=== PATIENT | female | born 1975 | race Caucasian/White ===

== ENCOUNTER 2023-04-07 19:02 | Emergency (ER) | payer OTHER ==
[~2023-04-07] VITALS: Ht 162.6 cm; Wt 72.6 kg
[2023-04-07 19:28] VITALS: BP_SYST 129; PULSE 89; RESP 18; TEMP 97.4; O2SAT 100
[2023-04-07] MEDS ORDERED: MORPHINE 4 MG INJ. 4 MG/ML VIAL IVP ONE ×2 (21:00→22:45)
[2023-04-07] MEDS ORDERED: ONDANSETRON HCL 4 MG/2 ML VIAL IVP ONE (21:00)
[2023-04-07] MEDS ORDERED: DIPHENHYDRAMINE INJ 50 MG/ML VIAL IVP ONE (21:00)
[2023-04-07] MEDS ORDERED: NACL 0.9% 1,000 ML IV ONE (21:00)
[2023-04-07] MEDS ORDERED: KETOROLAC TROMETHAMINE 30 MG VIAL IVP ONE (21:00)
[2023-04-07 21:55] LABS: BASOPHILS % (AUTO) 0.3 % (0.0-2.0); EOSINOPHILS % (AUTO) 0.4 % (0.0-4.0); HEMATOCRIT 38.4 % (36-48); HEMOGLOBIN 13.1 g/dL (12.0-16.0); LYMPHOCYTES # (AUTO) 1.2 K/uL (1.0-5.5); LYMPHOCYTES % (AUTO) 14.1 % (20.5-51.5); MEAN CORPUSCULAR HEMOGLOBIN 30 pg (27-31); MEAN CORPUSCULAR HGB CONC 34 % (32-36); MEAN CORPUSCULAR VOLUME 86 fL (79.0-98.0); MONOCYTES # (AUTO) 0.4 K/uL (0.0-1.0); MONOCYTES % (AUTO) 5.1 % (1.7-9.3); NEUTROPHILS # (AUTO) 6.9 K/uL (1.8-7.7); NEUTROPHILS % (AUTO) 80.1 % (40.0-70.0); PLATELET COUNT (AUTO) 194 K/uL (130-430); RED BLOOD CELL COUNT(AUTO) 4.45 MIL/uL (4.2-6.2); RED CELL DISTRIBUTION WIDTH 14.1 % (9.0-15.0); WHITE BLOOD COUNT (AUTO) 8.7 K/uL (4.8-10.8)
[2023-04-07 22:07] LABS: ALBUMIN 3.7 g/dL (3.4-4.8); BILIRUBIN,DIRECT 0.1 mg/dL (0.0-0.3); CALCIUM 7.7 mg/dL (8.4-11.0); CREATININE 0.47 mg/dL (0.55-1.30); POTASSIUM 3.7 mmol/L (3.5-5.1); TOTAL BILIRUBIN 0.3 mg/dL (0.0-1.0); TOTAL PROTEIN, SERUM 7.3 g/dL (6.4-8.3)
[2023-04-07 23:06] VITALS: BP_SYST 126; PULSE 80; RESP 18; TEMP 97.4; O2SAT 97
== END 2023-04-07 23:07 | disposition home or self-care (01) ==
LOC: SED 19:02
DX: G43.909 Migraine, unspecified, not intractable, without status migrainosus (principal); R11.0 Nausea; Z88.8 Allergy status to other drugs, medicaments and biological substances; Z91.041 Radiographic dye allergy status; Z79.899 Other long term (current) drug therapy
CPT/HCPCS: 99284; 96374; 96375; 96361; 80076; 80048; 83690; 85025; 36415; 96376; J1200; J1885; J2405; J2270; J7030

== ENCOUNTER 2023-07-26 19:04 | Emergency (ER) | payer OTHER ==
[~2023-07-26] VITALS: Ht 160 cm; Wt 72.6 kg
[2023-07-26 19:10] VITALS: BP_SYST 132; PULSE 84; RESP 18; TEMP 97; O2SAT 98
[2023-07-26] MEDS: NACL 0.9% 1,000 ML IV ONE (21:27)
[2023-07-26] MEDS: ONDANSETRON HCL 4 MG/2 ML VIAL IVP ONE (21:29)
[2023-07-26] MEDS: MORPHINE 4 MG INJ. 4 MG/ML VIAL IVP ONE (21:30)
[2023-07-26] MEDS: DIPHENHYDRAMINE INJ 50 MG/ML VIAL IVP ONE (21:30)
[2023-07-26] MEDS: KETOROLAC TROMETHAMINE 30 MG VIAL IVP ONE (22:11)
[2023-07-26 22:40] VITALS: BP_SYST 111; PULSE 78; RESP 16; TEMP 98; O2SAT 99
== END 2023-07-26 22:40 | disposition home or self-care (01) ==
LOC: SED 19:04
DX: G43.909 Migraine, unspecified, not intractable, without status migrainosus (principal); E03.9 Hypothyroidism, unspecified; F32.9 Major depressive disorder, single episode, unspecified; Z88.8 Allergy status to other drugs, medicaments and biological substances; Z91.040 Latex allergy status
CPT/HCPCS: 99284; 96374; 96375; 96361; 81025; J1200; J1885; J2405; J2270; J7030

== ENCOUNTER 2024-01-08 16:46 | Emergency (ER) | payer OTHER ==
[~2024-01-08] VITALS: Ht 160 cm; Wt 71.7 kg
[2024-01-08 17:03] VITALS: BP_SYST 122; PULSE 99; RESP 18; TEMP 97.7; O2SAT 100
[2024-01-08] MEDS ORDERED: CLIN-142 PO (18:26)
[2024-01-08] MEDS: KETOROLAC TROMETHAMINE 30 MG VIAL IM ONE (18:38)
[2024-01-08] MEDS: ACETAMINOPHEN 500 MG TABLET PO ONE (18:38)
[2024-01-08] MEDS: ONDANSETRON 4 MG ODT TAB PO ONE (18:45)
[2024-01-08] MEDS: DIPHENHYDRAMINE INJ 50 MG/ML VIAL IM ONE (18:49)
[2024-01-08] MEDS: MORPHINE 2 MG/ML INJ. SYRINGE IM ONE (18:51)
== END 2024-01-08 19:30 | disposition home or self-care (01) ==
LOC: SED 16:46
DX: L03.114 Cellulitis of left upper limb (principal); G43.909 Migraine, unspecified, not intractable, without status migrainosus; M54.9 Dorsalgia, unspecified; E03.9 Hypothyroidism, unspecified; Z79.890 Hormone replacement therapy; Z88.8 Allergy status to other drugs, medicaments and biological substances; Z91.041 Radiographic dye allergy status
CPT/HCPCS: 99284; 96372; Q0162; J1200; J2270; J1885